=== PATIENT | male | born 1945 | race Caucasian/White ===

== ENCOUNTER 2020-04-11 17:19 | Inpatient (IN) ==
[2020-04-15] MEDS: cilostazoL 100 MG TABLET PO SCH (21:00)
[2020-04-15] MEDS: Gabapentin 100 MG CAPSULE PO SCH (21:01)
[2020-04-15] MEDS: hydrALAZINE 25 MG TABLET PO SCH (21:01)
[2020-04-15] MEDS: Vancomycin Oral Soln 125 MG/2.5 ML UDC PO SCH (21:01)
[2020-04-16 07:45] LABS: Basophils % 0.3 %; Eosinophils # 0.1 K/mcL (0.0-0.6); Eosinophils % 0.7 %; Hematocrit 22.4 % (37.5-50.1); Hemoglobin 7.1 g/dL (12.9-16.9); Immature Granulocytes % 0.8 % (0-4); Lymphocytes # 1.4 K/mcL (0.6-4.6); Lymphocytes % 14.7 %; Mean Corpuscular HGB Conc 31.7 g/dL (31.6-35.5); Mean Corpuscular Hemoglobin 28.4 pg (28.0-33.3); Mean Corpuscular Volume 89.6 fL (83.0-100.0); Mean Platelet Volume 9.7 fL (9.4-12.4); Monocytes # 1.3 K/mcL (0.0-1.3); Monocytes % 13.9 %; Neutrophils # 6.4 K/mcL (1.6-8.9); Platelet Count 185 K/mcL (140-400); Red Cell Distribution Width 15.5 % (11.5-14.5); Segmented Neutrophils % 69.6 %; White Blood Count 9.2 K/mcL (4.3-11.1)
[2020-04-16 08:06] LABS: Calcium 7.8 mg/dL (8.6-10.3); Potassium 4.5 mEq/L (3.5-5.1)
[2020-04-16] MEDS: hydrALAZINE 25 MG TABLET PO SCH ×2 (08:57→19:49)
[2020-04-16] MEDS: SODIUM ZIRCONIUM CYCLOSILICATE 5 GM POWD.PACK PO SCH (08:57)
[2020-04-16] MEDS: carvediloL 25 MG TABLET PO SCH ×2 (08:57→16:17)
[2020-04-16] MEDS: Gabapentin 100 MG CAPSULE PO SCH ×3 (08:58→19:49)
[2020-04-16] MEDS: cilostazoL 100 MG TABLET PO SCH ×2 (08:58→19:49)
[2020-04-16] MEDS: lisinopriL 20 MG TABLET PO SCH (08:58)
[2020-04-16] MEDS: Cyanocobalamin (B-12) 1,000 MCG TABLET PO SCH (08:58)
[2020-04-16] MEDS: Aspirin Enteric Coated 81 MG Tablet PO SCH (08:58)
[2020-04-16] MEDS ORDERED: amLODIPine 5 MG TABLET PO SCH (09:00)
[2020-04-16] MEDS ORDERED: Furosemide 20 MG TABLET PO SCH (09:00)
[2020-04-16] MEDS: Vancomycin Oral Soln 125 MG/2.5 ML UDC PO SCH ×4 (09:03→19:48)
[2020-04-16] MEDS ORDERED: 0.9 % Sodium Chloride 250 ML IVC SCH (17:00)
[2020-04-16] MEDS ORDERED: 0.9 % Sodium Chloride 250 ML ONE (22:20)
[2020-04-17 07:03] LABS: Basophils % 0.2 %; Eosinophils # 0.1 K/mcL (0.0-0.6); Eosinophils % 1.2 %; Hematocrit 23.7 % (37.5-50.1); Hemoglobin 7.6 g/dL (12.9-16.9); Immature Granulocytes % 0.5 % (0-4); Lymphocytes # 1.1 K/mcL (0.6-4.6); Lymphocytes % 12.2 %; Mean Corpuscular HGB Conc 32.1 g/dL (31.6-35.5); Mean Corpuscular Hemoglobin 28.7 pg (28.0-33.3); Mean Corpuscular Volume 89.4 fL (83.0-100.0); Mean Platelet Volume 10.2 fL (9.4-12.4); Monocytes % 10.6 %; Platelet Count 178 K/mcL (140-400); Red Blood Count 2.65 M/mcL (4.19-5.50); Red Cell Distribution Width 15.3 % (11.5-14.5); Segmented Neutrophils % 75.3 %; White Blood Count 9.3 K/mcL (4.3-11.1)
[2020-04-17 07:22] LABS: Albumin 2.7 g/dL (3.5-5.7); Bilirubin,Total 0.6 mg/dL (0.3-1.0); Calcium 7.9 mg/dL (8.6-10.3); Globulin 2.6 g/dL (2.4-3.5); Potassium 4.6 mEq/L (3.5-5.1); Total Protein 5.3 g/dL (6.4-8.9)
[2020-04-17] MEDS: Gabapentin 100 MG CAPSULE PO SCH ×3 (09:00→20:58)
[2020-04-17] MEDS: lisinopriL 20 MG TABLET PO SCH (09:00)
[2020-04-17] MEDS: carvediloL 25 MG TABLET PO SCH ×2 (09:00→16:19)
[2020-04-17] MEDS: SODIUM ZIRCONIUM CYCLOSILICATE 5 GM POWD.PACK PO SCH (09:00)
[2020-04-17] MEDS: hydrALAZINE 25 MG TABLET PO SCH ×3 (09:00→20:58)
[2020-04-17] MEDS: Cyanocobalamin (B-12) 1,000 MCG TABLET PO SCH (09:01)
[2020-04-17] MEDS: Aspirin Enteric Coated 81 MG Tablet PO SCH (09:01)
[2020-04-17] MEDS: cilostazoL 100 MG TABLET PO SCH ×2 (09:01→20:57)
[2020-04-17] MEDS: Furosemide 40 MG TABLET PO SCH (09:01)
[2020-04-17] MEDS: Vancomycin Oral Soln 125 MG/2.5 ML UDC PO SCH (09:02)
[2020-04-17] MEDS ORDERED: Acetaminophen 325 MG TABLET PO PRN (13:14)
[2020-04-18 07:05] LABS: Hematocrit 22.1 % (37.5-50.1); Hemoglobin 7.1 g/dL (12.9-16.9); Mean Corpuscular HGB Conc 32.1 g/dL (31.6-35.5); Mean Corpuscular Hemoglobin 28.4 pg (28.0-33.3); Mean Corpuscular Volume 88.4 fL (83.0-100.0); Mean Platelet Volume 10.2 fL (9.4-12.4); Platelet Count 153 K/mcL (140-400); Red Cell Distribution Width 15.4 % (11.5-14.5)
[2020-04-18 07:55] LABS: Blood Urea Nitrogen > 130 mg/dL (8-23)
[2020-04-18 07:58] LABS: Calcium 7.7 mg/dL (8.6-10.3); Carbon Dioxide 20 mEq/L (23-29); Chloride 98 mEq/L (98-107); Glucose 130 mg/dL (70-105); Potassium 4.4 mEq/L (3.5-5.1); Sodium 133 mEq/L (136-145); eGFR For African Americans 14 (> 60); eGFR For Non-African Americans 12 (> 60)
[2020-04-18] MEDS ORDERED: Furosemide 20 MG/2 ML VIAL IVP ONE (08:06)
[2020-04-18] MEDS ORDERED: 0.9 % Sodium Chloride 250 ML IVC SCH (08:15)
[2020-04-18] MEDS ORDERED: 0.9 % Sodium Chloride 250 ML ONE (10:55)
[2020-04-18] MEDS: Aspirin Enteric Coated 81 MG Tablet PO SCH (11:00)
[2020-04-18] MEDS: *HR* HYDROcodone/Acet 7.5/325 mg TABLET PO PRN (11:00)
[2020-04-18] MEDS: SODIUM ZIRCONIUM CYCLOSILICATE 5 GM POWD.PACK PO SCH (11:00)
[2020-04-18] MEDS: cilostazoL 100 MG TABLET PO SCH ×2 (11:01→19:57)
[2020-04-18] MEDS: carvediloL 25 MG TABLET PO SCH ×2 (11:01→16:11)
[2020-04-18] MEDS: lisinopriL 20 MG TABLET PO SCH (11:01)
[2020-04-18] MEDS: Cyanocobalamin (B-12) 1,000 MCG TABLET PO SCH (11:01)
[2020-04-18] MEDS: Furosemide 40 MG TABLET PO SCH (11:01)
[2020-04-18] MEDS: hydrALAZINE 25 MG TABLET PO SCH ×3 (11:01→19:56)
[2020-04-18] MEDS: Gabapentin 100 MG CAPSULE PO SCH ×3 (11:01→19:57)
[2020-04-19 06:48] LABS: Basophils % 0.3 %; Eosinophils # 0.1 K/mcL (0.0-0.6); Eosinophils % 1.9 %; Hematocrit 24.4 % (37.5-50.1); Hemoglobin 8.1 g/dL (12.9-16.9); Immature Granulocytes % 0.3 % (0-4); Lymphocytes # 0.7 K/mcL (0.6-4.6); Lymphocytes % 10.3 %; Mean Corpuscular HGB Conc 33.2 g/dL (31.6-35.5); Mean Corpuscular Hemoglobin 28.6 pg (28.0-33.3); Mean Corpuscular Volume 86.2 fL (83.0-100.0); Mean Platelet Volume 10.3 fL (9.4-12.4); Monocytes # 0.4 K/mcL (0.0-1.3); Monocytes % 6.7 %; Neutrophils # 5.1 K/mcL (1.6-8.9); Platelet Count 158 K/mcL (140-400); Red Blood Count 2.83 M/mcL (4.19-5.50); Red Cell Distribution Width 15.5 % (11.5-14.5); Segmented Neutrophils % 80.5 %; White Blood Count 6.4 K/mcL (4.3-11.1)
[2020-04-19 07:08] VITALS: BP 114/60
[2020-04-19 07:12] LABS: Blood Urea Nitrogen > 130 mg/dL (8-23); Calcium 7.6 mg/dL (8.6-10.3); Carbon Dioxide 19 mEq/L (23-29); Chloride 96 mEq/L (98-107); Glucose 115 mg/dL (70-105); Potassium 4.2 mEq/L (3.5-5.1); Sodium 132 mEq/L (136-145); eGFR For African Americans 13 (> 60); eGFR For Non-African Americans 11 (> 60)
[2020-04-19] MEDS: cilostazoL 100 MG TABLET PO SCH (08:38)
[2020-04-19] MEDS: Gabapentin 100 MG CAPSULE PO SCH ×2 (08:38→14:15)
[2020-04-19] MEDS: Furosemide 40 MG TABLET PO SCH (08:38)
[2020-04-19] MEDS: Cyanocobalamin (B-12) 1,000 MCG TABLET PO SCH (08:39)
[2020-04-19] MEDS: carvediloL 25 MG TABLET PO SCH ×2 (08:39→15:55)
[2020-04-19] MEDS: SODIUM ZIRCONIUM CYCLOSILICATE 5 GM POWD.PACK PO SCH (08:39)
[2020-04-19] MEDS: hydrALAZINE 25 MG TABLET PO SCH ×2 (08:39→14:14)
[2020-04-19] MEDS: Aspirin Enteric Coated 81 MG Tablet PO SCH (08:39)
[2020-04-19 09:38] LABS: % Iron Saturation 16 % (20-55); Iron 22 mcg/dL (65-175); Transferrin 101 mg/dL (203-362)
[2020-04-19 10:03] LABS: Folate 4.9 ng/mL (3.0-16.0)
[2020-04-19] MEDS: *HR* HYDROcodone/Acet 7.5/325 mg TABLET PO PRN (12:10)
[2020-04-19] MEDS ORDERED: Albumin 25% 25gram/100mL 25 GM/100 ML IV.SOLN IVPB SCH (12:34)
[2020-04-19] MEDS ORDERED: 0.9 % Sodium Chloride 1,000 ML IVC SCH (12:45)
== END 2020-04-19 17:10 | disposition short-term general hospital (02) | DRG 683 ==
LOC: INPPIK 04-15 18:54
PROVIDERS: ADMIT Family Medicine; ATTEND Family Medicine